=== PATIENT | female | born 1985 | race Two or more races ===

== ENCOUNTER 2023-06-16 03:42 | Inpatient (IN) | payer MEDICAID, OTHER ==
[~2023-06-16] VITALS: Ht 165.1 cm; Wt 70.3 kg
[2023-06-16 04:22] LABS: BASOPHILS % (AUTO) 0.5 % (0.0-2.0); EOSINOPHILS % (AUTO) 1.5 % (1.0-6.0); HEMATOCRIT 40.2 % (36-46); HEMOGLOBIN 13.1 g/dL (12.0-16.0); LYMPHOCYTES # (AUTO) 2.2 K/uL (1.0-4.8); LYMPHOCYTES % (AUTO) 19.4 % (22.0-44.0); MEAN CORPUSCULAR HEMOGLOBIN 24.2 pg (26.0-34.0); MEAN CORPUSCULAR HGB CONC 32.5 G/dL (31.0-37.0); MEAN CORPUSCULAR VOLUME 74 fL (80-100); MONOCYTES # (AUTO) 0.8 K/uL (0.1-1.0); MONOCYTES % (AUTO) 7.2 % (2.0-9.0); NEUTROPHILS % (AUTO) 71.4 % (40.0-70.0); PLATELET COUNT (AUTO) 393 K/uL (150-450); RED CELL DISTRIBUTION WIDTH 17.7 % (11.5-14.5)
[2023-06-16] MEDS ORDERED: ACTIVATED CHARCOAL 50 GM/240 ML SUSPENSION PO ONE (04:30)
[2023-06-16 04:31] LABS: ANION GAP 11 mmol/L (8-16); CALCIUM, TOTAL 8.9 mg/dL (8.8-10.5); CARBON DIOXIDE 27 mmol/L (22-29); CHLORIDE 103 mmol/L (98-107); CREATININE 0.85 mg/dL (0.60-1.30); GLOMERULAR FILTR. RATE CALC > 60 mL/min (>60); GLUCOSE,RANDOM 111 mg/dL (70-110); POTASSIUM 3.6 mmol/L (3.5-5.1); SODIUM SERUM 141 mmol/L (136-145)
[2023-06-16 04:43] LABS: ALANINE AMINOTRANSFERASE 31 U/L (12-78); ALBUMIN 3.6 g/dL (3.4-5.0); ALKALINE PHOSPHATASE 77 U/L (46-116); ASPARTATE AMINOTRANSFERASE 16 U/L (15-37); BILIRUBIN,TOTAL 0.3 mg/dL (0.1-1.0); HCG,QUANTITATIVE < 1 mIU/mL (0-6); TOTAL PROTEIN, SERUM 7.6 g/dL (6.4-8.2)
[2023-06-16] MEDS ORDERED: ONDANSETRON HCL 4 MG/2 ML VIAL IVP ONE (04:45)
[2023-06-16 04:46] LABS: ACETAMINOPHEN < 2 mcg/mL (10-30)
[2023-06-16 04:59] LABS: SALICYLATE 0.6 mg/dL (2.8-20.0)
[2023-06-16 05:46] LABS: COVID AG,FIA SOURCE NASOPHARYNGEAL
[2023-06-16 06:19] LABS: AMPHET/METH SCREEN,URINE POSITIVE (NEGATIVE); BARBITURATE SCREEN, URINE NEGATIVE (NEGATIVE); BENZODIAZEPINES SCREEN,URINE NEGATIVE (NEGATIVE); CANNABINOID SCREEN,URINE NEGATIVE (NEGATIVE); COCAINE SCREEN,URINE NEGATIVE (NEGATIVE); METHADONE SCREEN, URINE NEGATIVE (NEGATIVE); OPIATE SCREEN,URINE NEGATIVE (NEGATIVE); PHENCYCLIDINE SCREEN,URINE NEGATIVE (NEGATIVE)
[2023-06-16] MEDS ORDERED: QUEtiapine FUMARATE 100 MG TABLET PO PRN (06:30)
[2023-06-16] MEDS ORDERED: LORazepam 2 MG TABLET PO PRN (06:30)
[2023-06-16] MEDS ORDERED: ZOLPIDEM TARTRATE 10 MG TABLET PO PRN (06:30)
[2023-06-16 23:37] VITALS: BP 108/77; PULSE 63; RESP 18; TEMP 97.2
[2023-06-16 23:44] VITALS: BP 108/77; PULSE 63; RESP 18; TEMP 97.2
[2023-06-16 23:50] VITALS: BP 108/77; PULSE 63; RESP 18; TEMP 97.2; O2SAT 100
[2023-06-17] MEDS ORDERED: ACETAMINOPHEN 325 MG TABLET PO PRN (10:45)
[2023-06-17] MEDS ORDERED: MAG HYDROX/AL HYDROX/SIMETH ES 30 ML SUSPENSION UDCUP PO PRN (10:45)
[2023-06-17] MEDS ORDERED: GuaiFENesin/D-METHORPHAN [SUGAR-FREE] 200-20MG/10 ML SYRUP UDCUP PO PRN (10:45)
[2023-06-17] MEDS ORDERED: PROMETHAZINE HCL 25 MG TABLET PO PRN (10:45)
[2023-06-17] MEDS ORDERED: TUBERCULIN, PURIFIED PROTEIN DERIVATIVE 5 TU/0.1 ML SYRINGE ID ONE (10:45)
[2023-06-17] MEDS ORDERED: HydrOXYzine PAMOATE 50 MG CAPSULE PO PRN (10:45)
[2023-06-17] MEDS ORDERED: LURASIDONE HCL 20 MG TABLET PO PRN (10:45)
[2023-06-17] MEDS ORDERED: MAGNESIUM HYDROXIDE SUSPENSION 30 ML UDCUP PO PRN (10:45)
[2023-06-17] MEDS ORDERED: LOPERAMIDE HCL 2 MG CAPSULE PO PRN (10:45)
[2023-06-17 14:11] VITALS: BP 108/71; PULSE 65; RESP 18; TEMP 97.8; O2SAT 100
[2023-06-17] MEDS: THIAMINE 100 MG TABLET PO SCH (17:15)
[2023-06-17] MEDS: LURASIDONE HCL 20 MG TABLET PO SCH (17:16)
[2023-06-17 20:03] VITALS: BP 115/74; PULSE 66; RESP 18; TEMP 97.9
[2023-06-17] MEDS: MELATONIN 5 MG TABLET PO SCH (21:12)
[2023-06-17 21:28] VITALS: RESP 18
[2023-06-18 07:12] LABS: CHOL/HDL RATIO 3.5 (3.9-5.7); FREE T4 (FREE THYROXINE) 0.93 ng/dL (0.76-1.46); THYROID STIMULATING HORMONE 0.36 uIU/mL (0.36-3.74)
[2023-06-18 08:03] LABS: HEMOGLOBIN A1C 5.5 % (3.8-5.6)
[2023-06-18] MEDS: OMEGA-3/DHA/EPA/FISH OIL 1,000 MG CAPSULE PO SCH (08:47)
[2023-06-18] MEDS: FOLIC ACID 1 MG TABLET PO SCH (08:47)
[2023-06-18] MEDS: THIAMINE 100 MG TABLET PO SCH ×2 (08:48→16:47)
[2023-06-18] MEDS: NALTREXONE HCL 50 MG TABLET PO SCH (08:48)
[2023-06-18] MEDS: MULTIVITAMINS WITH MINERALS, THERAPEUTIC TABLET PO SCH (08:48)
[2023-06-18 09:41] VITALS: BP 115/76; PULSE 65; RESP 18; TEMP 97.5
[2023-06-18] MEDS: LURASIDONE HCL 20 MG TABLET PO SCH (16:47)
[2023-06-18] MEDS ORDERED: OMEG-135 PO (19:36)
[2023-06-18] MEDS ORDERED: MELA5TAB40 PO (19:36)
[2023-06-18] MEDS ORDERED: NALT50TA PO (19:36)
[2023-06-18] MEDS ORDERED: LURA20TA2 PO (19:36)
[2023-06-18] MEDS: MELATONIN 5 MG TABLET PO SCH (20:01)
[2023-06-18 20:27] VITALS: BP 118/80; PULSE 90; RESP 18; TEMP 97.6
[2023-06-19] MEDS: FOLIC ACID 1 MG TABLET PO SCH (08:33)
[2023-06-19] MEDS: NALTREXONE HCL 50 MG TABLET PO SCH (08:33)
[2023-06-19] MEDS: OMEGA-3/DHA/EPA/FISH OIL 1,000 MG CAPSULE PO SCH (08:33)
[2023-06-19] MEDS: THIAMINE 100 MG TABLET PO SCH (08:33)
[2023-06-19] MEDS: MULTIVITAMINS WITH MINERALS, THERAPEUTIC TABLET PO SCH (08:33)
[2023-06-19 09:00] LABS: COVID AG,FIA SOURCE NASAL SWAB
[2023-06-19 09:24] VITALS: BP 120/71; PULSE 58; RESP 18; TEMP 96.9
== END 2023-06-19 13:10 | disposition home or self-care (01) | DRG 753 ==
LOC: EMS 03:43 → 3EI 20:00
PROVIDERS: ADMIT Psychiatry & Neurology Psychiatry; ATTEND Psychiatry & Neurology Psychiatry
DX: F31.30 Bipolar disorder, current episode depressed, mild or moderate severity, unspecified (principal); D72.829 Elevated white blood cell count, unspecified; Z20.822 Contact with and (suspected) exposure to COVID-19; F15.90 Other stimulant use, unspecified, uncomplicated; F41.9 Anxiety disorder, unspecified; Z55.9 Problems related to education and literacy, unspecified; Z59.9 Problem related to housing and economic circumstances, unspecified; Z63.9 Problem related to primary support group, unspecified; Z65.3 Problems related to other legal circumstances
CPT/HCPCS: 80053; 80061; 80307; 83036; 84439; 84443; 84702; 85025; 86592; 93005; 99285; G0480; G0481; J2405; Q9967